=== PATIENT | male | born 1990 ===

== ENCOUNTER → 2018-06-07 13:09 | Outpatient (REF) | payer SELFPAY ==
[2018-06-07 16:16] LABS: Urine N gonorrhoeae NOT DETECTED
[2018-06-07 16:35] LABS: Hep C Virus Ab w/Reflex Quant NEGATIVE s/c (NEGATIVE); Hepatitis B Surface Antigen NEGATIVE s/c (NEGATIVE)
[2018-06-07 17:18] LABS: HIV 1 and 2 Antibody INCONCLUSIVE (NEGATIVE)
[2018-06-07 17:33] LABS: Urine Chlamydia NOT DETECTED
[2018-06-09 10:48] LABS: RPR Screen Nonreactive (Nonreactive)
[2018-06-09 15:07] LABS: Hepatitis B Core Antibody Nonreactive (Nonreactive)
[2018-06-09 15:23] LABS: Hepatitis B Surf Ab Qualitativ Nonreactive (Nonreactive)
== END ==
LOC: LAB 13:09
PROVIDERS: Visit Provider Naturopath
DX: Z11.3 Encounter for screening for infections with a predominantly sexual mode of transmission (principal)
CPT/HCPCS: 86592; 86703; 86704; 86706; 86803; 87340; 87491; 87535; 87591